=== PATIENT | male | born 1980 | race Hispanic/Latino ===

== ENCOUNTER → 2023-05-04 15:12 | Outpatient (REF) | payer BC, SELFPAY | LOC: WOUND 15:12 | PROVIDERS: ATTENDING PHYSICIAN Surgery; REFERRING PHYSICIAN Family Medicine | DX: S31.829A Unspecified open wound of left buttock, initial encounter (principal); L02.31 Cutaneous abscess of buttock; I48.0 Paroxysmal atrial fibrillation; X58.XXXA Exposure to other specified factors, initial encounter | CPT/HCPCS: 97597; 99213 ==

== ENCOUNTER 2023-11-15 17:12 | Emergency (ER) | payer BC, SELFPAY ==
[2023-11-15 17:21] VITALS: BP 129/90
--- NOTE | 2023-11-15 17:47 | ED.GENMED ---
History of Present Illness
General
Chief Complaint: Heart Rate Problem
Time Seen by Provider: 11/15/23 17:32
Travel History
Have you had any contact with someone who has COVID-19?: No
Do you have any symptoms of coronavirus? Fever > 100 degrees, chills, cough, shortness of breath, sore throat, loss of taste or smell, muscle aches, or headache?: No
History of Present Illness
History of Present Illness:
43-year-old male sent emergency department for evaluation recurrent atrial fibrillation. He was diagnosed with paroxysmal A-fib approximately 2 years ago and has had very few bouts of this since taking metoprolol. Began last night with heart
palpitations and lightheadedness. Denies chest pain or shortness of breath. He is not anticoagulated
Past History
Past History
ED Past Medical History: None
ED Past Surgical History: None
Social History
Tobacco: Non-smoker
Alcohol: None
Drug: Marijuana
Personal:
Living: with family
Review of Systems
Review of Systems
Allergies reviewed?: Yes
All Other Systems: ROS reviewed and negative except as documented in HPI and ROS
Phy Exam
Physical Exam
Physical Exam:
GEN: Well appearing, NAD, WDWN
HEENT: Oral mucosa moist, no scleral icterus
Cardiac: Tachycardic, regular, no murmurs
Lung: No respiratory distress, no tachypnea
MSK: No gross deformity or injuries
Skin: Good color, no pallor or jaundice, no rashes
Neuro: AO x3, moves all extremities freely
Psych: Calm, cooperative
Course
Orders/Labs/Results
Orders:
Orders
11/15/23 17:16
ECG [Electrocardiogram (*1)] Urgent
Reason for Study: Palpitations
EKG- Treatment ONCE
11/15/23 17:46
Magnesium Sulfate 2 Gram/50 ml [Magnesium Sulfate] 2 gram in 50 ml IV NOW
Metoprolol [Lopressor] 5 mg IV NOW STA
11/15/23 17:56
Complete Blood Count/With Diff Urgent
Comprehensive Metabolic Panel Urgent
Magnesium Urgent
11/15/23 18:08
EKG [Electrocardiogram (*1)] Urgent
Reason for Study: Atrial Fibrillation
EKG- Treatment ONCE
Abnormal Lab Results
11/15/23
17:56
Absolute Neuts (auto) 7.3 H 10^3/uL
(1.4-6.5)
Absolute Monos (auto) 0.7 H 10^3/uL
(0.1-0.6)
Chloride 109 H mmol/L
(98-107)
Carbon Dioxide 20 L mmol/L
(22-30)
11/15/23 17:56
11/15/23 17:56
Vital Signs
Initial and Last Documented VS:
Initial Vital Signs
Temp Pulse Resp BP Pulse Ox
98.7 F 118 20 129/90 100
11/15/23 17:21 11/15/23 17:21 11/15/23 17:21 11/15/23 17:21 11/15/23 17:21
Last Documented Vital Signs
Temp Pulse Resp BP Pulse Ox
98.7 F 106 23 123/80 99
11/15/23 17:21 11/15/23 18:45 11/15/23 18:45 11/15/23 18:00 11/15/23 18:45
MDM/Problems Addressed
MDM/Problems Addressed:
Patient was found to be in rapid atrial fibrillation on arrival, meds were ordered for rate control however on reevaluation he converted spontaneously. Labs are reassuring. Will up his home dose of metoprolol to 50 mg release once daily.
Outpatient cardiology follow-up recommended
Comment
Comment:
Initial EKG independently interpreted by me shows rapid atrial fibrillation at a rate of [address] changes concerning for ischemia
Repeat EKG independently interpreted by me shows normal sinus rhythm with no ST changes concerning for ischemia, QTc of 423
*Critical Care Note
Total Time (30-74mins, 75-104mins- exclusive of procedures): Not Applicable
ED Attending Note
-
Portions of this chart may have been created with voice recognition software.� Occasional wrong word or��sound alike� substitutions may have occurred due to the inherent limitations of voice recognition software.
Discharge Plan
Departure
Patient Disposition: Home (Routine Discharge)
Date of Disposition: 11/15/23
Time of Disposition: 18:47
Patient with high blood pressure during this ER visit?: No
Discharge Problem:
Atrial fibrillation with RVR
Instructions: Atrial Fibrillation (DC)
Prescriptions:
New
metoprolol succinate 50 mg tablet extended release 24 hr
50 mg PO DAILY Qty: 30 0RF
Discontinued
metoprolol succinate 25 MG tablet extended release 24 hr
25 mg PO DAILY Qty: 30 0RF
No Action
omeprazole 20 MG capsule,delayed release(DR/EC)
20 mg PO DAILY
aspirin 81 MG tablet,delayed release (DR/EC)
81 mg PO DAILY Qty: 30 0RF
cyclobenzaprine 10 mg Tablet
10 mg PO HSPRN PRN (Reason: sleep)
therapeutic multivitamin Tablet
1 tab PO DAILY
Medical Marijuana
1 - 2 puff inhalation HSPRN PRN (Reason: sleep)
amoxicillin-pot clavulanate 875-125 mg tablet
1 tab PO BID 10 Days Qty: 20 0RF
acetaminophen [Acetaminophen Extra Strength] 500 mg tablet
1,000 mg PO Q6H PRN (Reason: fever or pain) Qty: 60 0RF
Stand Alone Forms: Return to Work
Activity Restrictions/Additional Instructions:
Follow-up with your needle grinder as soon as possible
Discussed with a be beneficial to see an automatic head sawyer in their practice regarding your A-fib
Interventions
Interventions:
*Risk Screen - Suicide Last Done: 11/15/23 18:14
*General Assessment Last Done: 11/15/23 18:14
*Neglect/Abuse Screening Last Done: 11/15/23 18:14
ED- Fall Risk Assessment Last Done: 11/15/23 18:13
*ED COVID-19 Vaccine History Last Done: 11/15/23 18:14
*Nursing Disposition Last Done: 11/15/23 19:03
ED- Cardiac Assessment Last Done: 11/15/23 18:16
ED- Pulmonary Assessment Last Done: 11/15/23 18:16
Discharge Date and Time
Discharge Date/Time: 11/15/23 19:04
Print Language: SURINAMESE
[2023-11-15 17:53] VITALS: BP 137/81
[2023-11-15 18:00] VITALS: BP 123/80
[2023-11-15 18:14] LABS: % Basophils 0.2 % (0-2); % Eosinophils 0.7 % (0-6); % Immature Granulocytes 0.4 % (0-0.5); % Lymphocytes 20.6 % (20.5-51.1); % Neutrophils 71.1 % (42.2-75.2); Absolute Eosinophils 0.1 10^3/uL (0-0.7); Absolute Lymphocytes 2.1 10^3/uL (1.2-3.4); Absolute Monocytes 0.7 10^3/uL (0.1-0.6); Absolute Neutrophils 7.3 10^3/uL (1.4-6.5); Hematocrit 41.8 % (39.0-52.0); Mean Corp Hgb Conc. 35.9 g/dL (33.0-37.0); Mean Corpuscular Hgb 30.4 pg (27.0-31.0); Mean Corpuscular Volume 84.6 fL (80.0-94.0); Mean Platelet Volume 9.9 fL (7.4-10.4); Nucleated Red Blood Cells % 0 % (-); Platelet Count 258 10^3/uL (130-400); Red Blood Cell Count 4.94 10^6/uL (4.70-6.10); Red Cell Dist. Width 12.8 % (11.5-14.5); White Blood Cell Count 10.2 10^3/uL (4.8-10.8)
--- NOTE | 2023-11-15 18:15 | EDRN ---
RN in room to start IV, draw labs and give IV meds. Pt placed on Tele monitor. Pt's heart rhythm now shows NSR. EKG done to confirm NSR. Geo DELACRUZ notified. Metoprolol IV and Mag IV meds were not given per PA. Will continue to monitor.
[2023-11-15 18:17] VITALS: BMI 28.9
[2023-11-15 18:36] LABS: ALT (SGPT) 19 U/L (0-50); AST (SGOT) 27 U/L (17-59); Albumin 4.5 g/dl (3.5-5.0); Alkaline Phosphatase 73 U/L (38-126); Blood Urea Nitrogen 17 mg/dl (9-20); Calcium 9.6 mg/dl (8.4-10.2); Carbon Dioxide 20 mmol/L (22-30); Chloride 109 mmol/L (98-107); Estimated Creatinine Clearance 115 ml/min; Glucose 94 mg/dl (70-99); Magnesium 1.9 mg/dl (1.6-2.3); Potassium 4.1 mmol/L (3.5-5.1); Sodium 135 mmol/L (135-145); Total Bilirubin 0.8 mg/dl (0.2-1.3); Total Protein 7.2 g/dl (6.3-8.2); eGFR > 60.00
== END 2023-11-15 19:04 | disposition home or self-care (01) ==
LOC: EMR 17:12
PROVIDERS: Physician Assistant; EMERGENCY PHYSICIAN Emergency Medicine; FAMILY PHYSICIAN Family Medicine
DX: I48.0 Paroxysmal atrial fibrillation (principal)
CPT/HCPCS: 99284; 80053; 83735; 85025; 93005

== ENCOUNTER 2024-02-07 08:49 | Day surgery (SDC) | payer BC, SELFPAY ==
[2024-01-31 08:18] LABS: % Basophils 0.3 % (0-2); % Eosinophils 3.4 % (0-6); % Immature Granulocytes 0.3 % (0-0.5); % Lymphocytes 34.3 % (20.5-51.1); % Monocytes 6.1 % (1.7-9.3); % Neutrophils 55.6 % (42.2-75.2); Absolute Eosinophils 0.2 10^3/uL (0-0.7); Absolute Lymphocytes 2.1 10^3/uL (1.2-3.4); Absolute Monocytes 0.4 10^3/uL (0.1-0.6); Absolute Neutrophils 3.4 10^3/uL (1.4-6.5); Hematocrit 44.8 % (39.0-52.0); Hemoglobin 15.2 g/dL (13.0-18.0); Mean Corp Hgb Conc. 33.9 g/dL (33.0-37.0); Mean Corpuscular Volume 88.4 fL (80.0-94.0); Mean Platelet Volume 9.8 fL (7.4-10.4); Nucleated Red Blood Cells % 0 % (-); Platelet Count 274 10^3/uL (130-400); Red Blood Cell Count 5.07 10^6/uL (4.70-6.10); Red Cell Dist. Width 12.7 % (11.5-14.5); White Blood Cell Count 6.1 10^3/uL (4.8-10.8)
[2024-01-31 08:22] LABS: INR 1.15; PT 14.8 Sec (11.4-14.6)
[2024-01-31 08:25] LABS: ALT (SGPT) 21 U/L (0-50); AST (SGOT) 26 U/L (17-59); Albumin 4.7 g/dl (3.5-5.0); Alkaline Phosphatase 63 U/L (38-126); Blood Urea Nitrogen 17 mg/dl (9-20); Calcium 9.2 mg/dl (8.4-10.2); Carbon Dioxide 26 mmol/L (22-30); Chloride 108 mmol/L (98-107); Glucose 101 mg/dl (70-99); Magnesium 2.1 mg/dl (1.6-2.3); Potassium 4.3 mmol/L (3.5-5.1); Sodium 139 mmol/L (135-145); Total Bilirubin 0.8 mg/dl (0.2-1.3); Total Protein 7.2 g/dl (6.3-8.2); eGFR > 60.00
--- NOTE | 2024-01-31 10:06 | HPS.HSE ---
Family Physician
-
Family Physician: Stewart Herbert
Chief Complaint
-
Paroxysmal atrial fibrillation.
History of Present Illness
The patient is a 43 year old male presenting today for paroxysmal atrial fibrillation. He reports a history of palpitations, lightheadedness, and dizziness associated with this diagnosis. He is currently on pharmacological therapy with
Metoprolol Succinate. He has been compliant with Xarelto for oral anticoagulation. He notes that his current symptoms greatly interfere with his activities of daily living and overall impact his quality of life. He is interested in pursuing
pulmonary vein isolation for further arrhythmia management and better symptom control. He denies any complaints today such as chest pain, shortness of breath, nausea, vomiting, diarrhea, cough, sore throat, or fever.
Medical History
Past Medical History
Past Medical History: Reports Other
Additional Past Medical History:
1. Paroxysmal atrial fibrillation, pharmacological therapy with Metoprolol Succinate, oral anticoagulation with Xarelto.
2. Right bundle branch block.
3. GERD.
4. Perirectal abscess with associated sepsis 04/2023.
5. Sciatica.
6. Insomnia.
7. Cannibis dependence.
Past Surgical History: Reports Other
Additional Past Surgical History:
[place] teeth extraction.
Social History
Tobacco: Non-smoker
Alcohol: None
Drug: Marijuana (He uses medical marijuana at bedtime as needed for insomnia. )
Living: Other (He lives with his fianc� and 20 year old son in a 2 story home. )
Family History
Family History: Not pertinent
Allergies / Home Medications
Allergy/Medication List:
Home medications:
1. Cyclobenzaprine 10 mg p.o. at bedtime as needed.
2. Kassy 180 mg p.o. daily.
3. Medical marijuana 1-2 puffs inhaled at bedtime as needed.
4. Metoprolol Succinate 50 mg p.o. daily.
5. Omeprazole 20 mg p.o. daily.
6. Xarelto 20 mg p.o. daily.
7. Multivitamin 1 tablet p.o. daily.
Allergies: Seasonal. No known drug allergies.
Review of Systems
-
A 12 point ROS was completed and negative except as noted: Yes
Physical Exam
Vital Signs
Blood pressure 122/87. Heart rate 86. Respirations 18. Pulse ox 100% on room air.
Height 5 feet, 8 inches. Weight 87.2 kg. BMI 29.2.
Physical Exam
General: Well Developed, Well Nourished and No Apparent Distress
HEENT: NormoCephalic, Moist mucous membranes, Atraumatic and PERRLA
Respiratory: Clear
Cardiac: Regular Rhythm
GI: Soft, Non Tender and Non Distended
Musculoskeletal: No Edema and Normal Gait & Station
Skin: Warm and Dry
Neuro: AO x 3 and Nonfocal/grossly intact
Laboratory Results
-
01/31/24 07:57
01/31/24 07:57
Laboratory Results
PT 14.8 Sec (11.4-14.6) H 01/31/24 07:57
INR 1.15 01/31/24 07:57
Total Bilirubin 0.8 mg/dl (0.2-1.3) 01/31/24 07:57
AST 26 U/L (17-59) 01/31/24 07:57
ALT 21 U/L (0-50) 01/31/24 07:57
Alkaline Phosphatase 63 U/L (38-126) 01/31/24 07:57
Type and screen O positive.
EKG 01/31/2024: Normal sinus rhythm. Left axis deviation.
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 No evidence of left atrial filling defect/thrombus.
Echocardiogram 08/03/2023: Normal biventricular size and systolic function without regional wall motion abnormality. Left ventricular ejection fraction estimated by Rod's biplane method 62%. Normal diastolic function. Normal atrial dimensions.
No significant valvular disease. No evidence of pulmonary hypertension. No pericardial effusion.
Impression/Plan
-
IMPRESSION/PLAN:
1. Paroxysmal atrial fibrillation: The patient is in need of pulmonary vein isolation with Dr. Hardeep Somers on 02/07/2024. The benefits and risks of the procedure have been explained to the patient. The patient understands these risks and wishes to
proceed. He will not be required to undergo a pre-procedural transesophageal echocardiogram as he has been compliant with his home oral anticoagulation. He will hold his Xarelto the day before his procedure as advised by his surgeon. He will take no
medications the morning of his procedure.
[2024-01-31 12:10] VITALS: BMI 29.2
[2024-02-07] VITALS (9 sets, daily range): BP systolic 109–132; BP diastolic 69–88
[2024-02-07] MEDS: NSS 500 IV (09:26)
[2024-02-07 13:03] LABS: ACT-LR - POC 343 Seconds (116-155)
[2024-02-07 13:42] LABS: ACT-LR - POC 179 Seconds (116-155)
[2024-02-07] MEDS: ANESTHETIC LOZENGE 1 LOZENGE PO (14:27)
--- NOTE | 2024-02-07 14:59 | ITS.CL.ABL ---
Fabrication Operator - Ablation
Ablation
Procedure Report:
Primary Sanitation Lead: Susannah Gee DO
Procedure Date: 02/07/2024
Patient History:
Patient is a pleasant 43 year old male with a past medical history of GERD and symptomatic PAF.
See H&P for complete details.
Indication:
Symptomatic PAF
Arrhythmia Specific History:
Prior Medical Therapies for Rate and Rhythm Control:
X Beta-robbie
[ ] Calcium channel-robbie
[ ] Amiodarone
[ ] Dronederone
[ ] Sotalol
[ ] Flecainide
[ ] Dofetilide
[ ] Options limited by bradycardia
[ ] Options limited by comorbid renal disease
Prior Procedural Therapies for AF/AFL:
[ ] Cardioversion
[ ] Pulmonary Vein Isolation
[ ] Posterior Wall Isolation
[ ] Additional lines (Specify)
[ ] Surgical Cunningham-MAZE or PVI (Specify)
Procedure Performed:
X AF ablation procedure (29113) -- includes LA/CS pacing, trans-septal, 3D mapping, + ICE
[ ] +IV drug (03080)
[ ] +Other Arrhythmia (58843)
[ ] +Other AF Line/ablation (94388)
Risks and expected recovery has been explained in detail. Alternative options have been explored, and in a shared-decision making fashion we have decided that this was the most appropriate procedure.
Method
NPO status confirmed. Grounding pad applied. Defibrillator pads applied. Continuous surface ECG, pulse oximetry, and blood pressure were monitored. Procedure was performed under general anesthesia, with anesthesia services.
Both groins were clipped, prepped with Chloraprep, and draped in sterile fashion. Time out was called. Local anesthesia administered with bupivacaine. The right and left femoral veins were accessed for catheter placement, using ultrasound guidance,
micro-puncture needle/wire, and modified seldinger technique. 3 sheaths were placed. The following catheters were used:
[ ] Tacticath SE (D/F Curve) ablation catheter
X Viewflex 9Fr ICE catheter
X Inquiry decapolar 6Fr diagnostic catheter
[ ] CRD Hex 6Fr
[ ] Arctic Front Advance Cryoballoon ([ ]28mm[ ]23mm)
[ ] Achieve Advance mapping catheter ([ ]15mm[ ]20mm)
X FlexCath Contour 10 Fr with PulseSelect PFA Catheter
X Advisor HD Grid Mapping Catheter, SE
[ ] Acuson AcuNav 8 Fr ICE catheter
[ ]Other: [ ]
Intracardiac ultrasound (ICE) was carefully advanced into the right atrium to guide sheath placement over a J-wire, catheter placement, guide trans-septal puncture, identify potential complications, identify anatomic structures and ensure proper
contact between ablation catheter and tissue.
Heparin was given prior to trans-septal puncture. Heparin was given to achieve and maintain a target ACT of 300-400 seconds throughout the procedure.
Trans-septal access was performed under ICE guidance. The trans-septal puncture was performed with a SafeSept wire through a Brockenbrough needle assembly through the steerable sheath. The wire was visualized as it entered the LSPV and system
advanced under ICE guidance and fluoroscopy into the LA. The Brockenbrough needle assembly, SafeSept wire and sheath dilator were removed under negative pressure. LA pressure was measured and recorded.
ICE and 3D mapping was performed to identify relevant cardiac structures. A careful 3D map was created to assess for regions of low-voltage and abnormal electrogram signals using HD grid mapping catheter and PulseSelect catheter. Additional mapping
was performed as outlined below.
Prior to ablation, glycopyrrolate was provided. PulseSelect catheter was advanced over J-wire to the ostium of each vein. Pulmonary vein isolation was performed with ostial and antral lesions in a circumferential manner. Contact was visualized via
EAM, ICE, fluoroscopy, and EGM signals. Following completion of ablation lesions, a post-ablation voltage/activation map was performed in sinus rhythm. Entrance and exit block were confirmed for each vein.
Catheter and sheath were removed from the left atrium and post-ablation intracardiac echo evaluation was consistent with pre-ablation with no changes and no pericardial effusion and there is no left atrial thrombus or left ventricle thrombus seen.
Electrophysiology study was performed. Hemostasis was obtained with Vascade for each sheath and with manual pressure. Protamine was used for reversal.
Estimated Blood Loss
5-10 mL
Complications
None
Fluoroscopy: 3.5 minutes; 7.43 mGy; DAP 0.995
Baseline Intervals:
Rhythm: SR
NY: 154 ms
QRS: 111 ms
QT: 329 ms
QTc: 415 ms
A-A: 627 ms
R-R: 627 ms
Post-Procedure Intervals:
NY: 172 ms
QRS: 109 ms
QT: 391 ms
QTc: 453 ms
A-A: 746 ms
R-R: 746 ms
AVWB: 370 ms
AVNERP: 600/280 ms
AERP: 600/210 ms
Recommendations
- Bedrest with straight-leg precautions as ordered
- Anticipate same day discharge if patient meeting clinical metrics
- Resume home medications as indicated
- Ok to resume anticoagulation tonight if patient and groin sites stable
- PPI daily for 30 days
- Plan for follow-up in office in 4-6 weeks
Hardeep Somers DO
Clinical Cardiac Sifter Operator
cc: Susannah Gee DO; Stewart Herbert, DO
[2024-02-07 15:00] LABS: ACT-LR - POC > 397 Seconds (116-155)
[2024-02-07 15:00] LABS: ACT-LR - POC 269 Seconds (116-155)
--- NOTE | 2024-02-07 15:53 | W.PN.UPDATE ---
Update Note
Progress Note Update
43 yo male s/p PVI (same day) He feels good, no cp, sob, edward diet, voiding, groins site c/d/i no HT, soft, EKG SR no ectopy. He will continue Xarleto dose at 8pm tonight. He will continue metoprolol and PPI daily. Activity restrictions reviewed. He
will f/u Dr. Gee in 2-3 mo. He is for d/c home after 440pm.
[2024-02-07] MEDS: TYLENOL 650 MG PO (16:13)
== END 2024-02-07 16:49 | disposition home or self-care (01) ==
LOC: CATH 08:49
PROVIDERS: ATTENDING PHYSICIAN Internal Medicine Cardiovascular Disease; FAMILY PHYSICIAN Family Medicine; OTHER PHYSICIAN Internal Medicine Cardiovascular Disease
DX: I48.0 Paroxysmal atrial fibrillation (principal); Z79.899 Other long term (current) drug therapy; Z79.01 Long term (current) use of anticoagulants; I45.10 Unspecified right bundle-branch block; K21.9 Gastro-esophageal reflux disease without esophagitis; M54.30 Sciatica, unspecified side; G47.00 Insomnia, unspecified; F12.20 Cannabis dependence, uncomplicated
CPT/HCPCS: C1732; C1894; C1733; C1769; C1766; 36415; 75572; 76937; 80053; 83735; 85025; 85347; 85610; 86850; 86900; 86901; 93005; 93656; C1760; Q9967